=== PATIENT | female | born 1950 | race Caucasian/White ===

== ENCOUNTER → 2018-01-30 08:25 | Outpatient (CLI) | payer MEDICARE, OTHER, SELFPAY ==
[2018-01-30 10:39] LABS: Bacteria Urine None Seen; RBC Urine None Seen (0-5/HPF); WBC Urine None Seen (0-5/HPF)
[2018-01-30 10:55] LABS: Appearance Urine UA CLEAR; Bilirubin Urine UA NEGATIVE (NEGATIVE); Color Urine UA YELLOW; Glucose Urine UA NEGATIVE (Normal); Ketones Urine UA NEGATIVE (NEGATIVE); Leukocyte Esterase Urine UA NEGATIVE (NEGATIVE); Nitrite Urine UA Negative (Negative); Occult Blood Urine UA NEGATIVE (Negative); Protein Urine UA NEGATIVE (Negative); Specific Gravity Urine UA <=1.005 (1.000-1.035); Urobilinogen Urine UA 0.2 E.U./dL (0.2); pH Urine UA 6.5 (4.5-8.0)
[2018-01-30 11:01] LABS: Culture Indicated Urine Cult Not Indicated; Urine Comments Microscopic Normal
== END ==
PROVIDERS: PCP Family Medicine; Visit Provider Physician Assistant
DX: Z87.440 Personal history of urinary (tract) infections (principal)
CPT/HCPCS: 81001

== ENCOUNTER → 2018-02-06 13:55 | Outpatient (CLI) | payer MEDICARE, OTHER, SELFPAY ==
[2018-02-08 14:59] LABS: Cancer Antigen 27.29 37 U/mL (< 38)
== END ==
PROVIDERS: PCP Family Medicine; Visit Provider Physician Assistant
DX: Z85.3 Personal history of malignant neoplasm of breast (principal)
CPT/HCPCS: 36415; 86300

== ENCOUNTER → 2018-05-14 07:18 | Outpatient (CLI) | payer MEDICARE, OTHER, SELFPAY ==
[2018-05-14 07:59] LABS: Alanine Aminotransferase 29 IU/L (9-52); Albumin 4.4 g/dL (3.5-5.0); Albumin Globulin Ratio 1.5 (1.0-2.8); Alkaline Phosphatase 68 U/L (38-126); Aspartate Aminotransferase 26 IU/L (14-36); BUN Creatinine Ratio 14.4 (6-22); Bilirubin Total 0.6 mg/dL (0.2-1.3); Blood Urea Nitrogen 13 mg/dL (7-17); Calcium 8.9 mg/dL (8.4-10.2); Carbon Dioxide 23 mmol/L (22-32); Chloride 107 mmol/L (98-107); Estimated Glomerular Filt Rate > 60.0 mL/min (>60); Glucose 96 mg/dL (80-110); HEMOLYSIS < 15 (0-50); Sodium 143 mmol/L (137-145); Total Protein 7.4 g/dL (6.3-8.2); Uric Acid 4.8 mg/dL (2.5-6.2)
[2018-05-14 08:02] LABS: Rheumatoid Factor < 8.6 IU/mL (<12.0)
[2018-05-14 08:06] LABS: Add Manual Diff / Slide Review NO; Eosinophils Percent Auto 2.1 % (2-4); Hematocrit 41.6 % (36-46); Hemoglobin 13.8 g/dL (12.0-16.0); Mean Corpuscular HGB Conc 33.1 % (30-36); Mean Corpuscular Hemoglobin 29.4 PG (26-34); Mean Corpuscular Volume 88.6 fL (80-100); Monocytes Percent Auto 8.2 % (3-14); Neutrophils Absolute Auto 4400 /uL (3000-5900); Neutrophils Percent Auto 62.7 % (50-75); Platelet Count 240 X10^3/uL (150-400); Red Cell Distribution Width 13.8 % (11.6-14.8)
[2018-05-14 08:18] LABS: Appearance Urine UA CLEAR; Bilirubin Urine UA NEGATIVE (NEGATIVE); Color Urine UA YELLOW; Glucose Urine UA NEGATIVE (Normal); Ketones Urine UA NEGATIVE (NEGATIVE); Leukocyte Esterase Urine UA NEGATIVE (NEGATIVE); Nitrite Urine UA NEGATIVE (Negative); Occult Blood Urine UA NEGATIVE (Negative); Protein Urine UA NEGATIVE (Negative); Specific Gravity Urine UA <=1.005 (1.000-1.035); Urobilinogen Urine UA 0.2 E.U./dL (0.2)
[2018-05-14 08:36] LABS: Erythrocyte Sedimentation Rate 13 MM/HR (0-20)
[2018-05-24 12:26] LABS: ANA Screen NEGATIVE (Negative); DNA Antibody Crithidia IFA NEGATIVE (Negative); Rheumatoid Factor <14 IU/mL; Sjogren Antiboday SS-A <1.0 NEG AI (<1.0 NEGATIVE); Sjogren Antiboday SS-B <1.0 NEG AI (<1.0 NEGATIVE); Sm Antibody <1.0 NEG AI (<1.0 NEGATIVE); Sm/RNP Antibody <1.0 NEG AI (<1.0 NEGATIVE)
== END ==
PROVIDERS: PCP Family Medicine; Visit Provider Family Medicine
DX: E03.9 Hypothyroidism, unspecified (principal); I10 Essential (primary) hypertension; M19.90 Unspecified osteoarthritis, unspecified site
CPT/HCPCS: 36415; 80053; 81003; 84550; 85025; 85651; 86038; 86430

== ENCOUNTER → 2018-09-23 07:07 | Outpatient (CLI) | payer MEDICARE, OTHER, SELFPAY ==
[2018-09-23 09:17] LABS: Alanine Aminotransferase 28 IU/L (9-52); Albumin 4.3 g/dL (3.5-5.0); Albumin Globulin Ratio 1.4 (1.0-2.8); Alkaline Phosphatase 72 U/L (38-126); Aspartate Aminotransferase 28 IU/L (14-36); Bilirubin Total 0.8 mg/dL (0.2-1.3); Blood Urea Nitrogen 17 mg/dL (7-17); Calcium 9.4 mg/dL (8.4-10.2); Carbon Dioxide 27 mmol/L (22-32); Chloride 100 mmol/L (98-107); Cholesterol 202 mg/dL (140-199); Estimated Glomerular Filt Rate 54.8 mL/min (>60); Glucose 84 mg/dL (80-110); HDL Cholesterol 53 mg/dL (40-60); HEMOLYSIS < 15 (0-50); LDL Cholesterol Calculated 99 mg/dL (<100); Potassium 4.7 mmol/L (3.4-5.1); Sodium 137 mmol/L (137-145); Total Protein 7.3 g/dL (6.3-8.2); Triglycerides 252 mg/dL (35-150)
== END ==
PROVIDERS: PCP Family Medicine; Visit Provider Family Medicine
DX: E03.9 Hypothyroidism, unspecified (principal); E78.2 Mixed hyperlipidemia; I10 Essential (primary) hypertension; Z51.81 Encounter for therapeutic drug level monitoring
CPT/HCPCS: 36415; 80053; 80061

== ENCOUNTER → 2019-02-07 18:35 | Outpatient (CLI) | payer MEDICARE, OTHER, SELFPAY | PROVIDERS: PCP Family Medicine; Visit Provider Physician Assistant | DX: N30.01 Acute cystitis with hematuria (principal) | CPT/HCPCS: 87077; 87086; 87186 ==

== ENCOUNTER → 2019-02-15 08:35 | Outpatient (CLI) | payer MEDICARE, OTHER, SELFPAY ==
[2019-02-15 09:25] LABS: Add Manual Diff / Slide Review NO; Basophils Absolute Auto 100 /uL (0-100); Basophils Percent Auto 0.9 % (0-2); Eosinophils Absolute Auto 100 /uL (0-450); Eosinophils Percent Auto 1.2 % (2-4); Hematocrit 41.3 % (36-46); Lymphocytes Absolute Auto 1800 /uL (1100-4500); Lymphocytes Percent Auto 26.5 % (25-40); Mean Corpuscular HGB Conc 33.9 % (30-36); Mean Corpuscular Hemoglobin 29.8 PG (26-34); Mean Corpuscular Volume 87.8 fL (80-100); Monocytes Absolute Auto 600 /uL (0-900); Monocytes Percent Auto 9.4 % (3-14); Neutrophils Absolute Auto 4200 /uL (1500-7000); Platelet Count 225 X10^3/uL (150-400); Red Cell Distribution Width 13.9 % (11.6-14.8); White Blood Cell Count 6.7 X10^3/uL (4.5-11.0)
[2019-02-15 09:35] LABS: Alanine Aminotransferase 22 IU/L (9-52); Albumin 4.4 g/dL (3.5-5.0); Albumin Globulin Ratio 1.4 (1.0-2.8); Alkaline Phosphatase 73 U/L (38-126); Aspartate Aminotransferase 28 IU/L (14-36); Bilirubin Total 0.9 mg/dL (0.2-1.3); Blood Urea Nitrogen 12 mg/dL (7-17); Calcium 9.4 mg/dL (8.4-10.2); Carbon Dioxide 25 mmol/L (22-32); Chloride 99 mmol/L (98-107); Estimated Glomerular Filt Rate 54.8 mL/min (>60); Globulin 3.2 g/dL (1.7-4.1); Glucose 99 mg/dL (80-110); HEMOLYSIS < 15 (0-50); Potassium 4.4 mmol/L (3.4-5.1); Sodium 136 mmol/L (137-145); Total Protein 7.6 g/dL (6.3-8.2)
[2019-02-15 10:16] LABS: Appearance Urine UA CLEAR; Bilirubin Urine UA NEGATIVE (NEGATIVE); Color Urine UA YELLOW; Glucose Urine UA NEGATIVE (Negative); Ketones Urine UA NEGATIVE (NEGATIVE); Leukocyte Esterase Urine UA NEGATIVE (NEGATIVE); Nitrite Urine UA NEGATIVE (Negative); Occult Blood Urine UA TRACE-LYSED (Negative); Protein Urine UA NEGATIVE (Negative); Specific Gravity Urine UA <=1.005 (1.000-1.035); Urobilinogen Urine UA 0.2 E.U./dL (0.2); pH Urine UA 6.5 (4.5-8.0)
[2019-02-15 10:31] LABS: Free T3, Triiodothyronine Free 3.49 pg/mL (2.77-5.27); Free T4, Direct Thyroxine 0.99 ng/dL (0.78-2.19)
[2019-02-15 10:45] LABS: Thyroid Stimulating Hormone 1.93 uIU/mL (0.47-4.68)
== END ==
PROVIDERS: PCP Family Medicine; Visit Provider Family Medicine
DX: E03.9 Hypothyroidism, unspecified (principal); E78.2 Mixed hyperlipidemia; I10 Essential (primary) hypertension; Z51.81 Encounter for therapeutic drug level monitoring; R30.0 Dysuria; E78.5 Hyperlipidemia, unspecified
CPT/HCPCS: 36415; 80053; 81003; 84439; 84443; 84481; 85025; 87086

== ENCOUNTER → 2019-03-01 08:05 | Outpatient (CLI) | payer MEDICARE, OTHER, SELFPAY ==
[2019-03-01 09:00] LABS: Hematocrit 41.3 % (36-46); Hemoglobin 13.8 g/dL (12.0-16.0); Mean Corpuscular HGB Conc 33.4 % (30-36); Mean Corpuscular Hemoglobin 29.7 PG (26-34); Mean Corpuscular Volume 88.8 fL (80-100); Platelet Count 262 X10^3/uL (150-400); Red Blood Cell Count 4.65 X10^6/uL (4.0-5.2); Red Cell Distribution Width 14.1 % (11.6-14.8); White Blood Cell Count 7.7 X10^3/uL (4.5-11.0)
[2019-03-01 09:16] LABS: Neutrophils Absolute Manual 4851 /uL (3000-5900); Total Cells Counted 100
[2019-03-01 09:17] LABS: RBC Morphology Normal Morphology
[2019-03-01 09:20] LABS: Alanine Aminotransferase 21 IU/L (9-52); Albumin 4.3 g/dL (3.5-5.0); Albumin Globulin Ratio 1.4 (1.0-2.8); Alkaline Phosphatase 71 U/L (38-126); Aspartate Aminotransferase 30 IU/L (14-36); BUN Creatinine Ratio 15.6 (6-22); Bilirubin Total 0.8 mg/dL (0.2-1.3); Blood Urea Nitrogen 14 mg/dL (7-17); Carbon Dioxide 24 mmol/L (22-32); Chloride 105 mmol/L (98-107); Cholesterol 190 mg/dL (140-199); Estimated Glomerular Filt Rate > 60.0 mL/min (>60); Globulin 3.1 g/dL (1.7-4.1); Glucose 93 mg/dL (80-110); HDL Cholesterol 50 mg/dL (40-60); HEMOLYSIS < 15 (0-50); LDL Cholesterol Calculated 80 mg/dL (<100); Potassium 4.1 mmol/L (3.4-5.1); Sodium 139 mmol/L (137-145); Total Protein 7.4 g/dL (6.3-8.2); Triglycerides 301 mg/dL (35-150)
[2019-03-01 09:36] LABS: Free T3, Triiodothyronine Free 3.47 pg/mL (2.77-5.27); Free T4, Direct Thyroxine 1.04 ng/dL (0.78-2.19)
[2019-03-01 09:49] LABS: Thyroid Stimulating Hormone 1.72 uIU/mL (0.47-4.68)
[2019-03-04 17:25] LABS: Cancer Antigen 27.29 34 U/mL (< 38)
== END ==
PROVIDERS: PCP Family Medicine; Visit Provider Family Medicine
DX: E03.9 Hypothyroidism, unspecified (principal); E78.2 Mixed hyperlipidemia; I10 Essential (primary) hypertension; Z85.3 Personal history of malignant neoplasm of breast
CPT/HCPCS: 36415; 80053; 80061; 84439; 84443; 84481; 85025; 86300

== ENCOUNTER → 2019-04-14 13:03 | Outpatient (CLI) | payer MEDICARE, OTHER, SELFPAY ==
--- NOTE | 2019-04-14 13:04 | DI.US.S_ITS ---
PROCEDURE: US PELVIC COMPLETE INDICATIONS: PELVIC PAIN TECHNIQUE: Real-time scanning was performed of the pelvic organs, with image documentation. Additional endovaginal scanning was necessary due to incomplete visualization of the adnexal and endometrial structures by transabdominal scanning. COMPARISON: None. FINDINGS: Transabdominal scanning: Limited scanning through the kidneys shows no hydronephrosis. No pathologic free abdominal or pelvic fluid. Endovaginal scanning: Uterus: Uterus is normal in size at 6.3 x 2.3 x 3.7 cm. The endometrium measures 4.0 mm in combined thickness. Ovaries: Ovaries are normal bilaterally measuring 2.4 x 1.4 x 1.0 cm on the right and 2.1 x 1.3 x 1.1 cm in length. IMPRESSION: No source for pelvic pain identified. Dictated by: David LUCAS Interpreted: Jeannie Burton MD on 04/14/2019 at 16:10 Approved by: Jeannie Burton MD, PhD on 04/14/2019 at 16:47
== END ==
PROVIDERS: PCP Family Medicine; Visit Provider Family Medicine
DX: R10.2 Pelvic and perineal pain (principal); G89.29 Other chronic pain
CPT/HCPCS: 76830; 76856

== ENCOUNTER → 2019-05-13 13:45 | Outpatient (CLI) | payer MEDICARE, OTHER, SELFPAY ==
--- NOTE | 2019-05-13 13:47 | DI.RAD.S_ITS ---
PROCEDURE: XR LUMBAR SPINE MIN 4V INDICATIONS: pelvic pain TECHNIQUE: 4 views of the lumbar spine were acquired. COMPARISON: None. FINDINGS: Bones: No fracture or focal osseous destruction. Multilevel degenerative endplate sclerosis and spurring. Diffuse facet arthropathy. Diffuse mild narrowing of the lumbar disc spaces. Soft tissues: Overlying bowel gas pattern is normal. No suspicious soft tissue calcifications. Oblique images: No pars defects. IMPRESSION: Diffuse mild lumbar spondylosis and facet arthropathy. Dictated by: Pierce Johnson M.D. on 05/13/2019 at 16:11 Approved by: Pierce Johnson M.D. on 05/13/2019 at 16:12
== END ==
PROVIDERS: PCP Family Medicine; Visit Provider Family Medicine
DX: R10.2 Pelvic and perineal pain (principal); M47.816 Spondylosis without myelopathy or radiculopathy, lumbar region
CPT/HCPCS: 72110

== ENCOUNTER → 2019-05-21 11:15 | Outpatient (CLI) | payer MEDICARE, OTHER, SELFPAY ==
--- NOTE | 2019-05-21 11:18 | DI.RAD.S_ITS ---
PROCEDURE: XR KNEE LT 3V INDICATIONS: knee pain TECHNIQUE: 3 views of the knee were acquired. COMPARISON: None. FINDINGS: Bones: No acute fracture or dislocation. There are moderate to severe tricompartmental degenerative changes of the left knee, worst in the medial compartment, as evidenced by osteophyte formation and periarticular sclerosis. Soft tissues: No joint effusion. There is mild superior patellar enthesopathy. IMPRESSION: [id number] tricompartmental degenerative changes of the left knee, worst in the medial compartment. Dictated by: Benito White M.D. on 05/21/2019 at 15:25 Approved by: Benito White M.D. on 05/21/2019 at 15:27
--- NOTE | 2019-05-21 11:18 | DI.RAD.S_ITS ---
PROCEDURE: XR KNEE RT 3V INDICATIONS: knee pain TECHNIQUE: 3 views of the knee were acquired. COMPARISON: [facility], CR, XR KNEE LT 3V, 05/21/2019, 11:25. FINDINGS: Bones: No acute fractures or dislocations. No suspicious bony lesions. Mild tricompartmental degenerative changes of the right knee as evidenced by osteophyte formation and periarticular sclerosis. Mild chronic-appearing cortical irregularity of the distal lateral anterior right femur at the articular surface with the patella is noted, best seen on sunrise view. Soft tissues: No joint effusion is identified. There is mild superior patellar enthesopathy. IMPRESSION: Mild tricompartmental degenerative changes of the right knee. Mild cortical irregularity of the distal lateral anterior right femur at the articular surface with the patella may represent the chronic sequela of prior fracture/dislocation. Dictated by: Benito White M.D. on 05/21/2019 at 15:41 Approved by: Benito White M.D. on 05/21/2019 at 15:57
== END ==
PROVIDERS: PCP Family Medicine; Visit Provider Family Medicine
DX: M25.561 Pain in right knee (principal); M25.562 Pain in left knee; M79.2 Neuralgia and neuritis, unspecified; M81.0 Age-related osteoporosis without current pathological fracture
CPT/HCPCS: 73562

== ENCOUNTER → 2019-08-16 08:01 | Outpatient (CLI) | payer MEDICARE, OTHER, SELFPAY ==
[2019-08-16 09:21] LABS: Alanine Aminotransferase 31 IU/L (<35); Albumin 4.6 g/dL (3.5-5.0); Albumin Globulin Ratio 1.4 (1.0-2.8); Alkaline Phosphatase 77 U/L (38-126); Aspartate Aminotransferase 34 IU/L (14-36); Bilirubin Total 0.7 mg/dL (0.2-1.3); Bilirubin Unconjugated 0.7 mg/dL (0.0-1.1); Cholesterol 195 mg/dL (140-199); Globulin 3.3 g/dL (1.7-4.1); HDL Cholesterol 45 mg/dL (40-60); HEMOLYSIS < 15 (0-50); LDL Cholesterol Calculated 97 mg/dL (<100); Total Protein 7.9 g/dL (6.3-8.2); Triglycerides 265 mg/dL (35-150)
--- NOTE | 2019-08-19 10:35 | ONC.MSW ---
Description: New Referral Navigation T/C Reason for Referral: Hx breast cancer, re-establish care Activity: Called pt to confirm that we have her referral, and also to address specific concerns that she had shared with her provider, Radha Luna, re: difficulty coping with survivorship, and coping with the of her previous oncologist who treated her in this clinic. MACHINE [employer]IPPER offered support and reassurance, as well as helped pt to process what her goals/needs were at this time with returning to re-establish in clinic. Pt decided that she really didn't want to see the doctor right away, and instead scheduled a time to come in and meet with this MACHINE STRIPPER to discuss questions that she has, as well as counseling for support. She preferred to wait until September to meet-scheduled a time for 09/21. No further needs identified at this time.
[2019-08-19 15:50] LABS: Cancer Antigen 27.29 42 U/mL (< 38)
== END ==
PROVIDERS: PCP Nurse Practitioner; Referring Provider Nurse Practitioner; Visit Provider Nurse Practitioner
DX: E78.2 Mixed hyperlipidemia (principal); Z85.3 Personal history of malignant neoplasm of breast; Z79.899 Other long term (current) drug therapy; M81.0 Age-related osteoporosis without current pathological fracture; I10 Essential (primary) hypertension; E03.9 Hypothyroidism, unspecified
CPT/HCPCS: 36415; 80061; 80076; 86300

== ENCOUNTER → 2019-08-26 14:15 | Outpatient (CLI) | payer MEDICARE, OTHER, SELFPAY | PROVIDERS: PCP Nurse Practitioner; Visit Provider Physician Assistant | DX: J02.9 Acute pharyngitis, unspecified (principal) | CPT/HCPCS: 87070 ==

== ENCOUNTER → 2020-01-05 19:51 | Outpatient (ROUT) | payer MEDICARE, OTHER, SELFPAY ==
[2020-01-05 19:53] LABS: Bacteria Urine None Seen
[2020-01-05 19:58] LABS: Appearance Urine UA CLEAR; Bilirubin Urine UA NEGATIVE (NEGATIVE); Color Urine UA YELLOW; Glucose Urine UA NEGATIVE (Negative); Ketones Urine UA NEGATIVE (NEGATIVE); Leukocyte Esterase Urine UA NEGATIVE (NEGATIVE); Nitrite Urine UA NEGATIVE (Negative); Occult Blood Urine UA 3+ (Negative); Protein Urine UA NEGATIVE (Negative); Specific Gravity Urine UA <=1.005 (1.000-1.035); Urobilinogen Urine UA 0.2 E.U./dL (0.2)
[2020-01-05 20:14] LABS: pH Urine UA 6.5 (4.5-8.0)
[2020-01-05 20:15] LABS: Culture Indicated Urine Cult Not Indicated; RBC Urine 5-10/HPF (0-5/HPF); Squamous Epithelial Cell Urine 1-5 /HPF (0-5/HPF); WBC Urine 0-1/HPF (0-5/HPF)
== END ==
PROVIDERS: PCP Nurse Practitioner; Visit Provider Nurse Practitioner
DX: R31.9 Hematuria, unspecified (principal)
CPT/HCPCS: 81001

== ENCOUNTER → 2020-01-13 12:41 | Outpatient (CLI) | payer MEDICARE, OTHER, SELFPAY | PROVIDERS: PCP Nurse Practitioner; Referring Provider Nurse Practitioner; Visit Provider Nurse Practitioner | DX: M85.851 Other specified disorders of bone density and structure, right thigh (principal); Z78.0 Asymptomatic menopausal state; E07.9 Disorder of thyroid, unspecified; Z87.891 Personal history of nicotine dependence; Z79.899 Other long term (current) drug therapy | CPT/HCPCS: 77080 ==

== ENCOUNTER → 2020-03-03 08:00 | Outpatient (CLI) | payer MEDICARE, OTHER, SELFPAY ==
[2020-03-03 08:17] LABS: Bacteria Urine None Seen; RBC Urine None Seen (0-5/HPF); WBC Urine None Seen (0-5/HPF)
[2020-03-03 08:35] LABS: Creatinine Urine Random 14.6 mg/dL
[2020-03-03 08:43] LABS: Microalbumin Urine Random < 0.6 mg/dL (0-1.6)
[2020-03-03 09:36] LABS: Appearance Urine UA CLEAR; Bilirubin Urine UA NEGATIVE (NEGATIVE); Color Urine UA YELLOW; Glucose Urine UA NEGATIVE (Negative); Ketones Urine UA NEGATIVE (NEGATIVE); Leukocyte Esterase Urine UA TRACE (NEGATIVE); Nitrite Urine UA NEGATIVE (Negative); Occult Blood Urine UA NEGATIVE (Negative); Protein Urine UA NEGATIVE (Negative); Specific Gravity Urine UA <=1.005 (1.000-1.035); Urobilinogen Urine UA 0.2 E.U./dL (0.2)
[2020-03-03 09:39] LABS: pH Urine UA 7.5 (4.5-8.0)
[2020-03-03 09:40] LABS: Culture Indicated Urine Cult Not Indicated; Urine Comments Microscopic Normal
[2020-03-03 09:47] LABS: Alanine Aminotransferase 27 IU/L (<35); Albumin 4.4 g/dL (3.5-5.0); Albumin Globulin Ratio 1.4 (1.0-2.8); Alkaline Phosphatase 78 U/L (38-126); Aspartate Aminotransferase 33 IU/L (14-36); BUN Creatinine Ratio 12.4 (6-22); Bilirubin Total 0.9 mg/dL (0.2-1.3); Blood Urea Nitrogen 12 mg/dL (7-17); Calcium 9.4 mg/dL (8.4-10.2); Carbon Dioxide 26 mmol/L (22-32); Chloride 102 mmol/L (98-107); Cholesterol 214 mg/dL (140-199); Estimated Glomerular Filt Rate 56.6 mL/min (>60); Globulin 3.1 g/dL (1.7-4.1); Glucose 94 mg/dL (80-110); HDL Cholesterol 61 mg/dL (40-60); HEMOLYSIS < 15 (0-50); LDL Cholesterol Calculated 106 mg/dL (<100); Potassium 4.5 mmol/L (3.4-5.1); Sodium 139 mmol/L (137-145); Total Protein 7.5 g/dL (6.3-8.2); Triglycerides 236 mg/dL (35-150)
[2020-03-03 10:19] LABS: Thyroid Stimulating Hormone 1.78 uIU/mL (0.47-4.68)
[2020-03-05 12:08] LABS: Fecal Immunochemical Test Negative (Negative)
== END ==
PROVIDERS: PCP Nurse Practitioner; Referring Provider Nurse Practitioner; Visit Provider Nurse Practitioner
DX: E03.9 Hypothyroidism, unspecified (principal); E78.2 Mixed hyperlipidemia; I10 Essential (primary) hypertension; Z79.899 Other long term (current) drug therapy; R31.9 Hematuria, unspecified; Z12.11 Encounter for screening for malignant neoplasm of colon
CPT/HCPCS: 36415; 80053; 80061; 81001; 82043; 82274; 82570; 84443

== ENCOUNTER 2020-04-12 11:46 | Emergency (ER) | payer MEDICARE, OTHER, SELFPAY ==
[2020-04-12] VITALS (19 sets, daily range): BP systolic 144–188; BP diastolic 77–99; PULSE 72–88; RESP 18–24; TEMP 36.7; O2SAT 89–100
[2020-04-12 12:17] LABS: Add Manual Diff / Slide Review NO; Basophils Absolute Auto 100 /uL (0-100); Eosinophils Absolute Auto 100 /uL (0-450); Eosinophils Percent Auto 0.9 % (2-4); Hematocrit 43.3 % (36-46); Hemoglobin 14.3 g/dL (12.0-16.0); Lymphocytes Absolute Auto 2100 /uL (1100-4500); Mean Corpuscular HGB Conc 33.1 % (30-36); Mean Corpuscular Volume 90.8 fL (80-100); Monocytes Absolute Auto 700 /uL (0-900); Monocytes Percent Auto 7.9 % (3-14); Neutrophils Absolute Auto 6400 /uL (1500-7000); Neutrophils Percent Auto 68.2 % (50-75); Platelet Count 270 X10^3/uL (150-400); Red Blood Cell Count 4.77 X10^6/uL (4.0-5.2); White Blood Cell Count 9.4 X10^3/uL (4.5-11.0)
[2020-04-12 12:18] LABS: Prothrombin Time 11.8 SECONDS (10.1-12.7)
[2020-04-12 12:21] LABS: PTT Partial Thromboplastin Tim 35 SECONDS (26.4-36.2)
[2020-04-12] MEDS: MORPHINE 4 MG/ML INJ IV (12:21)
--- NOTE | 2020-04-12 12:21 | ED_ITS ---
HPI - Abdominal Pain <Patrick PROMISE Lorenzo - Last Filed: 04/13/20 02:23> General Chief Complaint: Abdominal Pain Stated Complaint: FELL LAST SUNDAY, RIGHT SIDE ABDOMINAL PAIN Time Seen by Provider: 04/12/20 12:05 Source: patient Mode of arrival: Ambulatory Limitations: no limitations History of Present Illness HPI narrative: This is a 69-year-old female, former smoker, with past medical history significant for hypertension, hyperlipidemia, and hypothyroidism presents to ED with chief complain of severe right upper quadrant pain radiating to back. Patient reports she had a fall 6 days ago in a garden but does not remember how she fell or landed at that time and RUQ was kind of sore. Patient experiencing severe pain this morning after she took a shower. Patient reports pain increases with breathing movements. She rates her pain as 8/10 and describes as sharp and shooting. Patient denies chest pain, dizziness, fever or chills. Patient is not on blood thinner. Related Data Home Medications Medication Instructions Recorded Confirmed lutein 20 mg PO QDAY #0 11/08/16 03/24/20 Calcium 1 tab PO .QDAY 01/30/18 03/24/20 Multivitamin 1 tab PO .QDAY 01/30/18 03/24/20 Vitamin D3 See Rx Instructions .ROUTE .COMPLEX 01/30/18 03/24/20 ibandronate mg PO 04/13/20 niacin 04/13/20 simvastatin mg 04/13/20 valsartan [Diovan] 04/13/20 Previous Rx's Medication Instructions Recorded levothyroxine 50 mcg tablet See Rx Instructions .ROUTE 04/22/19 .COMPLEX #90 tablet ibandronate 150 mg tablet 150 mg PO QMONTH #3 tab 09/22/19 valsartan 160 mg tablet 160 mg PO DAILY #90 tab 01/05/20 omeprazole magnesium 20 mg 20 mg PO DAILY PRN #90 cap 01/26/20 capsule,delayed release niacin 250 mg tablet 250 mg PO BEDTIME #90 tab 03/24/20 simvastatin 40 mg tablet 40 mg PO BEDTIME #90 tab 03/24/20 hydrocodone-acetaminophen [[place]] 1 tab PO Q8H PRN #10 tab 04/12/20 Allergies Allergy/AdvReac Type Severity Reaction Status Date / Time povidone-iodine Allergy Severe Itching, Verified 04/12/20 12:08 [From BETADINE] rash and blisters irbesartan AdvReac Mild nausea, Verified 04/12/20 12:08 hot flashes, heartburn Review of Systems <PROMISE Araujo - Last Filed: 04/13/20 02:23> Review of Systems Narrative: General: Denies fever, chills, fatigue, malaise, sweats. HEENT: Denies sinus pain, ear pain, sore throat, difficulty swallowing, dizziness. Respiratory: See HPI Cardiovascular: Denies chest pain, palpitations, orthopnea, edema. Gastrointestinal: See HPI : Denies dysuria, frequency, incontinence, hematuria, urinary retention. Musculoskeletal: See HPI Skin: Denies rash, skin lesions, or other. Neurologic: Denies weakness, headache, numbness, change in speech, confusion, seizures, incoordination. Psychiatric: No concerning psychosocial issues. 12-point review of systems is negative except for those stated above. Patient History <PROMISE Araujo - Last Filed: 04/13/20 02:23> Medical History Anxiety (Chronic 2009) Arthritis (Chronic 2011) Breast cancer (Resolved 2009) Cataracts, bilateral (Chronic 2011) Chickenpox (Resolved 1953) Fractures (Resolved 2011) Generalized headaches (Chronic Unknown) Hemorrhoids (Chronic 10/2016) Hyperlipemia (Chronic ~07/2015) Hypertension (Chronic Unknown) Hypothyroidism (Chronic Unknown) Left otitis media (Acute) Migraines (Chronic Unknown) Osteoarthritis (Chronic 2011) Osteopenia (Chronic 2010) Other chcf (current) drug therapy (Acute) Sigmoid diverticulosis (Resolved 10/2016) Sinusitis (Acute) Vertigo (Chronic 2010) Surgical History History of total mastectomy (2009) Family History Brother Age: 75 Mental health problem Child Age: 47 Thyroid cancer Father Stroke Mother Cancer Sister No problems noted. Social History Smoking Status: Former smoker Tobacco: How many years used: 35 second hand exposure: No alcohol intake: never substance use type: does not use Smoking Status: Former smoker alcohol intake frequency: 0-2 drinks per day Substance Use Type: does not use Exam <PROMISE Araujo - Last Filed: 04/13/20 02:23> Narrative Exam Narrative: GEN: Alert, oriented x 3, well nourished, and in moderate distress. Head: Normal cephalic, atraumatic. No scalp or temporal tenderness, palpable mass or rash. EYES: Pupils are equal, round, and reactive to light and accommodation. Extraocular muscles are intact bilaterally. There is no subconjunctival hemorrhage, exudate and sclera non-icteric. ENT: Hearing grossly intact. Nose without bleeding, purulent discharge or deviation. Mucous membrane moist, no mucosal lesion. Throat without erythema, tonsillar hypertrophy or exudate. Uvula in midline, airway patent. Neck: Trachea in midline. No JVD, non-tender without lymphadenopathy. No masses or thyroid megaly. Supple, non-tender and no meningeal signs. CARDIAC: Normal regular rate and rhythm without murmurs, gallops, or rubs. No chest wall tenderness. No peripheral edema, cyanosis or pallor. Capillary refill is less than 2 seconds. RESPIRATORY: Lungs are clear to auscultate bilaterally. No cough, wheezes, rales, or rhonchi. No stridor. Grunting breathing due to discomfort. No respiratory distress, increase work of breathing, or accessary muscle used. O2 sat 96% in RA. ABD: Abdomen soft and non-distended but exquisite tenderness to palpate in right upper quadrant and side. Guarding to palpate. Bowel sounds are normal in all 4 quadrants. There is no palpable masses or organomegaly. EXT: Full painless ROM of all extremities with no loss of sensation, strength, effusion or edema. SKIN: Warm, dry, normal color for patient. No erythema, lesions or rash over visible areas. BACK: Nontender without deformity or crepitance. No flank tenderness. NEUROLOGICAL: Alert and oriented to place, time and person. Sensation and motor function intact bilaterally. No facial droops, dysphasia. PSYCHIATRIC: Good judgement and reason, without hallucinations, abnormal affect or abnormal behaviors during the examination. Patient is not suicidal. Initial Vital Signs Initial Vital Signs: Vital Signs Temperature 98.1 F 04/12/20 11:50 Pulse Rate 88 04/12/20 11:50 Respiratory Rate 24 04/12/20 11:50 Blood Pressure 188/99 H 04/12/20 11:50 Pulse Oximetry 98 04/12/20 11:50 <Alex Quintana DO - Last Filed: 04/13/20 07:36> Initial Vital Signs Initial Vital Signs: Vital Signs Temperature 98.1 F 04/12/20 11:50 Pulse Rate 88 04/12/20 11:50 Respiratory Rate 24 04/12/20 11:50 Blood Pressure 188/99 H 04/12/20 11:50 Pulse Oximetry 98 04/12/20 11:50 Scores <PROMISE Araujo - Last Filed: 04/13/20 02:23> GCS [place] coma scale eye opening: Spontaneous Lay coma scale verbal response: Orientated Lay coma scale motor response: Obey commands Lay coma scale total score: 15 Course <PROMISE Araujo - Last Filed: 04/13/20 02:23> Orders Ordered: Discontinued Medications Diphenhydramine HCl (Benadryl) 25 mg IV NOW ONE Stop: 04/12/20 12:36 Last Admin: 04/12/20 12:38 Dose: 25 mg Documented by: SHIVA Sodium Chloride (Normal Saline 0.9%) 1,000 mls @ 150 mls/hr IV CONT BRENDAN Last Infusion: 04/12/20 13:30 Dose: 0 mls/hr Documented by: Admin: 04/12/20 12:22 Dose: 150 mls/hr Documented by: SHIVA Morphine Sulfate (Morphine) 4 mg IV NOW ONE Stop: 04/12/20 12:13 Last Admin: 04/12/20 12:21 Dose: 4 mg Documented by: SHIVA Reevaluation(s) Reevaluation #1: Patient reports pain improved after medication treatment. Waiting for CT results. Time: 13:15 Vital Signs Vital signs: Vital Signs - 8 hr 04/12/20 11:50 04/12/20 12:08 04/12/20 12:15 Temperature 98.1 F Pulse Rate 88 78 72 Respiratory Rate 24 24 Blood Pressure 188/99 H Pulse Oximetry 98 96 96 <Alex Quintana DO - Last Filed: 04/13/20 07:36> Orders Ordered: Discontinued Medications Diphenhydramine HCl (Benadryl) 25 mg IV NOW ONE Stop: 04/12/20 12:36 Last Admin: 04/12/20 12:38 Dose: 25 mg Documented by: SHIVA Sodium Chloride (Normal Saline 0.9%) 1,000 mls @ 150 mls/hr IV CONT BRENDAN Last Infusion: 04/12/20 13:30 Dose: 0 mls/hr Documented by: Admin: 04/12/20 12:22 Dose: 150 mls/hr Documented by: SHIVA Morphine Sulfate (Morphine) 4 mg IV NOW ONE Stop: 04/12/20 12:13 Last Admin: 04/12/20 12:21 Dose: 4 mg Documented by: SHIVA Vital Signs Vital signs: Vital Signs - 8 hr 04/12/20 11:50 04/12/20 12:08 04/12/20 12:15 Temperature 98.1 F Pulse Rate 88 78 72 Respiratory Rate 24 24 Blood Pressure 188/99 H Pulse Oximetry 98 96 96 MDM - Abdominal Pain <PROMISE Araujo - Last Filed: 04/13/20 02:23> Differential Diagnosis Differential diagnosis: Likely acute appendicitis, calculus of kidney and other (Rib fracture, liver laceration, pulmonary embolism, cholecystitis, pancreatitis,) Medical Records Attestation: I reviewed the patient's medical records. Lab Data Attestation: I reviewed the patient's lab results. Result diagrams: 04/12/20 12:03 04/12/20 12:03 Labs: Lab Results 04/12/20 04/12/20 04/12/20 Range/Units 11:46 12:03 12:03 WBC 9.4 (4.5-11.0) X10^3/uL RBC 4.77 (4.0-5.2) X10^6/uL Hgb 14.3 (12.0-16.0) g/dL Hct 43.3 (36-46) % MCV 90.8 (80-100) fL MCH 30.0 (26-34) PG MCHC 33.1 (30-36) % RDW 14.0 (11.6-14.8) % Plt Count 270 (150-400) X10^3/uL Neut % (Auto) 68.2 (50-75) % Lymph % (Auto) 22.0 L (25-40) % Sunflower % (Auto) 7.9 (3-14) % Eos % (Auto) 0.9 L (2-4) % Baso % (Auto) 1.0 (0-2) % Neut # (Auto) 6400 (2125-7522) /uL Lymph # (Auto) 2100 (5637-9238) /uL Sunflower # (Auto) 700 (0-900) /uL Eos # (Auto) 100 (0-450) /uL Baso # (Auto) 100 (0-100) /uL PT 11.8 (10.1-12.7) SECONDS INR 1.0 (0.9-1.3) APTT 35 (26.4-36.2) SECONDS Sodium (137-145) mmol/L Potassium (3.4-5.1) mmol/L Chloride (98-107) mmol/L Carbon Dioxide (22-32) mmol/L BUN (7-17) mg/dL Creatinine (0.52-1.04) mg/dL Estimated GFR (>60) mL/min BUN/Creatinine Ratio (6-22) Glucose (80-110) mg/dL Calcium (8.4-10.2) mg/dL Total Bilirubin (0.2-1.3) mg/dL AST (14-36) IU/L ALT (<35) IU/L Alkaline Phosphatase (38-126) U/L Total Protein (6.3-8.2) g/dL Albumin (3.5-5.0) g/dL Globulin (1.7-4.1) g/dL Albumin/Globulin Ratio (1.0-2.8) Lipase (23-300) U/L Blood Type O Positive Antibody Screen Negative 04/12/20 Range/Units 12:03 WBC (4.5-11.0) X10^3/uL RBC (4.0-5.2) X10^6/uL Hgb (12.0-16.0) g/dL Hct (36-46) % MCV (80-100) fL MCH (26-34) PG MCHC (30-36) % RDW (11.6-14.8) % Plt Count (150-400) X10^3/uL Neut % (Auto) (50-75) % Lymph % (Auto) (25-40) % Sunflower % (Auto) (3-14) % Eos % (Auto) (2-4) % Baso % (Auto) (0-2) % Neut # (Auto) (7537-9235) /uL Lymph # (Auto) (0952-6839) /uL Sunflower # (Auto) (0-900) /uL Eos # (Auto) (0-450) /uL Baso # (Auto) (0-100) /uL PT (10.1-12.7) SECONDS INR (0.9-1.3) APTT (26.4-36.2) SECONDS Sodium 140 (137-145) mmol/L Potassium 3.9 (3.4-5.1) mmol/L Chloride 106 (98-107) mmol/L Carbon Dioxide 25 (22-32) mmol/L BUN 13 (7-17) mg/dL Creatinine 0.90 (0.52-1.04) mg/dL Estimated GFR > 60.0 (>60) mL/min BUN/Creatinine Ratio 14.4 (6-22) Glucose 107 (80-110) mg/dL Calcium 9.4 (8.4-10.2) mg/dL Total Bilirubin 0.7 (0.2-1.3) mg/dL AST 33 (14-36) IU/L ALT 29 (<35) IU/L Alkaline Phosphatase 79 (38-126) U/L Total Protein 8.0 (6.3-8.2) g/dL Albumin 4.7 (3.5-5.0) g/dL Globulin 3.3 (1.7-4.1) g/dL Albumin/Globulin Ratio 1.4 (1.0-2.8) Lipase 69 (23-300) U/L Blood Type Antibody Screen Point of care testing: Urine Dip Bedside Urine Glucose Negative Bedside Urine Bilirubin - Negative Bedside Urine Ketone - Negative Urine Specific [place] 1.005 Bedside Urine Occult Blood - Negative Bedside Urine pH 6.5 Bedside Urine Protein - Negative Bedside Urine Urobilinogen - Negative Bedside Urine Nitrite - Negative Imaging Data CT-Chest and abdomen: Radiologist's Impression: [address] [address] [address] Scan Report Signed Patient: Heath Valverde#: [id number] : 9Acct:[id number] Age/Sex: 69 / FDate of Service: 04/12/20 Loc: ED Accession Number: [id number] Procedure: CT chest abd pel w con Ordering Provider: Patrick Lorenzo PROCEDURE: CT CHEST ABD PEL W CON INDICATIONS: s/p fall 6 days ago, pain in RUQ pain TECHNIQUE: After the administration of intravenous contrast, 5 mm thick sections acquired from the lung apices to the symphysis. 2.5 mm thick coronal and sagittal reformats were acquired. Additional 7 mm thick coronal maximum intensity projection (MIP) reformats acquired through the lungs. Optional 10-minute delayed imaging may be performed from the kidneys to the bladder. For radiation dose reduction, the following was used: automated exposure control, adjustment of mA and/or kV according to patient size. COMPARISON: None. FINDINGS: Image quality: Excellent. CHEST: Lungs: No pulmonary contusions or lacerations. Scattered atelectasis in posterior aspect of bilateral lower lung pham are seen more prominent on the right side. No pneumothorax or hemothorax. Central and peripheral airways appear patent and normal in caliber. Mediastinum: No mediastinal hematomas. Heart size is normal. No pericardial effusion. Thoracic aorta and pulmonary arteries demonstrate normal size and enhancement. [id number]-[id number] atherosclerotic calcifications are seen. No mediastinal or hilar adenopathy. Esophagus is normal in caliber. No hiatal hernia. Chest wall: No gross rib fracture is seen. No subcutaneous emphysema. No axillary or supraclavicular adenopathy. Surgical clips are noted in bilateral axilla. Thyroid gland is within normal limits. ABDOMEN: Solid organs: Liver is normal in size and enhancement, without lacerations. Hepatic steatosis is seen. Gallbladder is distended and shows no gross abnormality.. Biliary system is non-dilated. Pancreas enhances normally, without transection. Spleen is normal in size and enhancement, without lacerations. No adrenal hematomas. Both kidneys enhance normally, without hydronephrosis or lacerations. Peritoneum and bowel: No free fluid or air. Unenhanced bowel loops demonstrate normal wall thickness and caliber. Mild fecal stasis in the colon is seen. Nodes and vessels: No retroperitoneal or mesenteric adenopathy. Aorta and inferior vena cava are normal in size and enhancement. Miscellaneous: No ventral hernias. PELVIS: Genitourinary: Bladder wall thickness is normal. Miscellaneous: No inguinal hernias or adenopathy. Bones: Pelvic ring and hip joints appear intact. No vertebral compression fractures. IMPRESSION: 1. Mild bibasilar dependent atelectasis. No focal infiltrate, pleural effusion or pneumothorax. 2. No gross acute rib fracture. No compression fracture or spondylolisthesis in thoracic and lumbar spine. No acute pelvic fracture. 3. No acute solid organ injury within chest, abdomen or pelvis. No free fluid or free air. Dictated by: Hollis Saunders M.D. on 04/12/2020 at 13:30 Approved by: Hollis Saunders M.D. on 04/12/2020 at 14:01 US - abdomen: Radiologist's Impression: [address] [address] Ultrasound Report Signed Patient: Heath Valverde#: [id number] : 9Acct:[id number] Age/Sex: 69 / FDate of Service: 04/12/20 Loc: ED Accession Number: [id number] Procedure: US abdomen limited Ordering Provider: Patrick Lorenzo PROCEDURE: US ABDOMEN LIMITED INDICATIONS: RUQ PAIN RADIATING TO BACK TECHNIQUE: Real-time focused scanning was performed of the abdomen, with image documentation. COMPARISON: [facility], CT, CT CHEST ABD PEL W CON, 04/12/2020, 12:48. FINDINGS: Hepatic steatosis. No gallstones. Minimal gallbladder sludge. No gallbladder wall thickening. No fluid around the gallbladder. No pain on examination. No biliary ductal dilatation. Common hepatic duct measures 1.9 mm. Common bile duct measures 4.6 mm. IMPRESSION: No evidence of gallstone disease. No evidence of acute cholecystitis. Hepatic steatosis. Dictated by: Jamari Randhawa M.D. on 04/12/2020 at 15:38 Approved by: Jamari Randhawa M.D. on 04/12/2020 at 15:40 ECG Data Attestation: I personally reviewed and interpreted this ECG as follows: Prior ECG tracings: not available for review Interpretation: Sinus rhythm rate at 74. Normal [place]. [place] interval 204, QRS duration 88, QT/QTC 394/441. No acute ST changes MDM Narrative Medical decision making narrative: This is a 69 year female presents to ED with exquisite tenderness to right upper quadrant radiating to right thoracic region which started this morning after shower she reports had fell in the garden 6 days ago. Patient denies chest pain by hurts to take deep breaths. No constitutional symptoms. O2 sat in room air was 99% and afebrile. Initially hypertensive with slight tachypnea. Given history of recent injury and patient's presentation, concern for possible rib fracture, liver laceration, pneumothorax, acute abdominal pathology, ordered CT of chest and abdomen. CT test result indicates mild bibasilar dependent atelectasis without infiltrate, pneumothorax or pleural effusion. There is no gross acute fracture appreciated. No acute solid organ injury appreciated. No leukocytosis. Stable H&H of 14.3/43.3. Normal coag test. Unremarkable chemistry results With normal lipase. Patient was medicated with IV morphine which helped her symptoms. However when patient was reassessed she reports still had some tenderness to right upper quadrant with palpation. US test of abdomen ordered to evaluate gall bladder to be slightly distended in CT. Ultrasound test indicates no evidence of gallstone or acute cholecystitis but hepatic steatosis. It is unclear of the etiology of patient's pain. At this time will treat patient's pain as musculoskeletal pain. Patient advised to take [id number] Tylenol and Motrin as needed and to take [place] for severe pain. Advised to follow up with primary care physician in next few days and return precautions discussed with patient which patient verbalized understanding and in agreement with treatment plan. <Alex Quintana, DO - Last Filed: 04/13/20 07:36> Lab Data Labs: Lab Results 04/12/20 04/12/20 04/12/20 Range/Units 11:46 12:03 12:03 WBC 9.4 (4.5-11.0) X10^3/uL RBC 4.77 (4.0-5.2) X10^6/uL Hgb 14.3 (12.0-16.0) g/dL Hct 43.3 (36-46) % MCV 90.8 (80-100) fL MCH 30.0 (26-34) PG MCHC 33.1 (30-36) % RDW 14.0 (11.6-14.8) % Plt Count 270 (150-400) X10^3/uL Neut % (Auto) 68.2 (50-75) % Lymph % (Auto) 22.0 L (25-40) % Sunflower % (Auto) 7.9 (3-14) % Eos % (Auto) 0.9 L (2-4) % Baso % (Auto) 1.0 (0-2) % Neut # (Auto) 6400 (1024-0123) /uL Lymph # (Auto) 2100 (0681-9852) /uL Sunflower # (Auto) 700 (0-900) /uL Eos # (Auto) 100 (0-450) /uL Baso # (Auto) 100 (0-100) /uL PT 11.8 (10.1-12.7) SECONDS INR 1.0 (0.9-1.3) APTT 35 (26.4-36.2) SECONDS Sodium (137-145) mmol/L Potassium (3.4-5.1) mmol/L Chloride (98-107) mmol/L Carbon Dioxide (22-32) mmol/L BUN (7-17) mg/dL Creatinine (0.52-1.04) mg/dL Estimated GFR (>60) mL/min BUN/Creatinine Ratio (6-22) Glucose (80-110) mg/dL Calcium (8.4-10.2) mg/dL Total Bilirubin (0.2-1.3) mg/dL AST (14-36) IU/L ALT (<35) IU/L Alkaline Phosphatase (38-126) U/L Total Protein (6.3-8.2) g/dL Albumin (3.5-5.0) g/dL Globulin (1.7-4.1) g/dL Albumin/Globulin Ratio (1.0-2.8) Lipase (23-300) U/L Blood Type O Positive Antibody Screen Negative 04/12/20 Range/Units 12:03 WBC (4.5-11.0) X10^3/uL RBC (4.0-5.2) X10^6/uL Hgb (12.0-16.0) g/dL Hct (36-46) % MCV (80-100) fL MCH (26-34) PG MCHC (30-36) % RDW (11.6-14.8) % Plt Count (150-400) X10^3/uL Neut % (Auto) (50-75) % Lymph % (Auto) (25-40) % Sunflower % (Auto) (3-14) % Eos % (Auto) (2-4) % Baso % (Auto) (0-2) % Neut # (Auto) (5977-7313) /uL Lymph # (Auto) (4216-6853) /uL Sunflower # (Auto) (0-900) /uL Eos # (Auto) (0-450) /uL Baso # (Auto) (0-100) /uL PT (10.1-12.7) SECONDS INR (0.9-1.3) APTT (26.4-36.2) SECONDS Sodium 140 (137-145) mmol/L Potassium 3.9 (3.4-5.1) mmol/L Chloride 106 (98-107) mmol/L Carbon Dioxide 25 (22-32) mmol/L BUN 13 (7-17) mg/dL Creatinine 0.90 (0.52-1.04) mg/dL Estimated GFR > 60.0 (>60) mL/min BUN/Creatinine Ratio 14.4 (6-22) Glucose 107 (80-110) mg/dL Calcium 9.4 (8.4-10.2) mg/dL Total Bilirubin 0.7 (0.2-1.3) mg/dL AST 33 (14-36) IU/L ALT 29 (<35) IU/L Alkaline Phosphatase 79 (38-126) U/L Total Protein 8.0 (6.3-8.2) g/dL Albumin 4.7 (3.5-5.0) g/dL Globulin 3.3 (1.7-4.1) g/dL Albumin/Globulin Ratio 1.4 (1.0-2.8) Lipase 69 (23-300) U/L Blood Type Antibody Screen Point of care testing: Urine Dip Bedside Urine Glucose Negative Bedside Urine Bilirubin - Negative Bedside Urine Ketone - Negative Urine Specific [place] 1.005 Bedside Urine Occult Blood - Negative Bedside Urine pH 6.5 Bedside Urine Protein - Negative Bedside Urine Urobilinogen - Negative Bedside Urine Nitrite - Negative Discharge Plan Departure Patient Disposition: Home Clinical Impression: Right upper quadrant pain Discharge Date/Time: 04/12/20 16:17 Instructions: DI for Contusion, DI for Rib Contusion Activity Restrictions/Additional Instructions: You have been diagnosed with [right upper quadrant discomfort likely from rib /chest contusion strain. Labs and imaging tests -US abdomen, CT of chest and abdomen are assuring.]. What to do: *Take your medications as directed. Please take [id number] Tylenol and or Motrin as needed for discomfort as a baseline. For severe pain please take which is narcotic pain medication. Please do not drive, drink alcohol, or operate heavy equipments while on [place]. This can cause constipation as well so please take precautions. Please take deep breaths 10 times every hour while your awake while splinting the affected area to decrease pain and to prevent pneumonia. [facility] [place]. *Follow up with your primary care provider in 2-3 days, call for an appointment. Let them know you were seen in the ED and that we asked you to be seen in follow up. *Return to ED if you have any new, worsening, or concerning symptoms, such as [worsening pain, fever, rash, chest pain, breathing difficulty, unable to tolerate fluids or any acute concerns]. Prescriptions: New hydrocodone-acetaminophen [[place]] 5-325 mg tablet 1 tab PO Q8H PRN (Reason: pain) Qty: 10 RF: 0 No Action Calcium 1 tab PO .QDAY RF: 0 Multivitamin 1 tab PO .QDAY RF: 0 Vitamin D3 See Rx Instructions .ROUTE .COMPLEX RF: 0 lutein 20 MG capsule 20 mg PO QDAY Qty: 0 RF: 0 levothyroxine 50 mcg tablet See Rx Instructions .ROUTE .COMPLEX Qty: 90 RF: 4 ibandronate [Boniva] 150 mg tablet 150 mg PO QMONTH Qty: 3 RF: 3 omeprazole magnesium 20 mg capsule,delayed release(DR/EC) 20 mg PO DAILY PRN (Reason: GERD) Qty: 90 RF: 3 niacin 250 mg tablet 250 mg PO BEDTIME Qty: 90 RF: 1 simvastatin 40 mg tablet 40 mg PO BEDTIME Qty: 90 RF: 1 valsartan 160 mg tablet 160 mg PO DAILY Qty: 90 RF: 3 valsartan [Diovan] 160 mg tablet RF: 0 niacin 250 mg tablet RF: 0 simvastatin 20 mg tablet RF: 0 ibandronate 150 mg tablet PO RF: 0 Referrals: Radha Luna ARNP [Primary Care Provider] - <Alex Quintana DO - Last Filed: 04/13/20 07:36> Cosign ED Attending Cosignature Attestation: I was immediately available in the department for consultation. This documentation has been reviewed and I agree with assessment and plan. Supervised by Alex Quintana DO
[2020-04-12] MEDS: SODIUM CHLORIDE 0.9% 1,000 ML 150 ML IV (12:22)
[2020-04-12 12:28] LABS: Alanine Aminotransferase 29 IU/L (<35); Albumin 4.7 g/dL (3.5-5.0); Albumin Globulin Ratio 1.4 (1.0-2.8); Alkaline Phosphatase 79 U/L (38-126); Aspartate Aminotransferase 33 IU/L (14-36); BUN Creatinine Ratio 14.4 (6-22); Bilirubin Total 0.7 mg/dL (0.2-1.3); Blood Urea Nitrogen 13 mg/dL (7-17); Calcium 9.4 mg/dL (8.4-10.2); Carbon Dioxide 25 mmol/L (22-32); Chloride 106 mmol/L (98-107); Estimated Glomerular Filt Rate > 60.0 mL/min (>60); Globulin 3.3 g/dL (1.7-4.1); Glucose 107 mg/dL (80-110); HEMOLYSIS < 15 (0-50); Lipase 69 U/L (23-300); Potassium 3.9 mmol/L (3.4-5.1); Sodium 140 mmol/L (137-145)
[2020-04-12] MEDS: diphenhydrAMINE 50 MG/ML VIAL 25 MG IV (12:38)
--- NOTE | 2020-04-12 13:13 | DI.CT.S_ITS ---
PROCEDURE: CT CHEST ABD PEL W CON INDICATIONS: s/p fall 6 days ago, pain in RUQ pain TECHNIQUE: After the administration of intravenous contrast, 5 mm thick sections acquired from the lung apices to the symphysis. 2.5 mm thick coronal and sagittal reformats were acquired. Additional 7 mm thick coronal maximum intensity projection (MIP) reformats acquired through the lungs. Optional 10-minute delayed imaging may be performed from the kidneys to the bladder. For radiation dose reduction, the following was used: automated exposure control, adjustment of mA and/or kV according to patient size. COMPARISON: None. FINDINGS: Image quality: Excellent. CHEST: Lungs: No pulmonary contusions or lacerations. Scattered atelectasis in posterior aspect of bilateral lower lung pham are seen more prominent on the right side. No pneumothorax or hemothorax. Central and peripheral airways appear patent and normal in caliber. Mediastinum: No mediastinal hematomas. Heart size is normal. No pericardial effusion. Thoracic aorta and pulmonary arteries demonstrate normal size and enhancement. [id number] atherosclerotic calcifications are seen. No mediastinal or hilar adenopathy. Esophagus is normal in caliber. No hiatal hernia. Chest wall: No gross rib fracture is seen. No subcutaneous emphysema. No axillary or supraclavicular adenopathy. Surgical clips are noted in bilateral axilla. Thyroid gland is within normal limits. ABDOMEN: Solid organs: Liver is normal in size and enhancement, without lacerations. Hepatic steatosis is seen. Gallbladder is distended and shows no gross abnormality.. Biliary system is non-dilated. Pancreas enhances normally, without transection. Spleen is normal in size and enhancement, without lacerations. No adrenal hematomas. Both kidneys enhance normally, without hydronephrosis or lacerations. Peritoneum and bowel: No free fluid or air. Unenhanced bowel loops demonstrate normal wall thickness and caliber. Mild fecal stasis in the colon is seen. Nodes and vessels: No retroperitoneal or mesenteric adenopathy. Aorta and inferior vena cava are normal in size and enhancement. Miscellaneous: No ventral hernias. PELVIS: Genitourinary: Bladder wall thickness is normal. Miscellaneous: No inguinal hernias or adenopathy. Bones: Pelvic ring and hip joints appear intact. No vertebral compression fractures. IMPRESSION: 1. Mild bibasilar dependent atelectasis. No focal infiltrate, pleural effusion or pneumothorax. 2. No gross acute rib fracture. No compression fracture or spondylolisthesis in thoracic and lumbar spine. No acute pelvic fracture. 3. No acute solid organ injury within chest, abdomen or pelvis. No free fluid or free air. Dictated by: Hollis Saunders M.D. on 04/12/2020 at 13:30 Approved by: Hollis Saunders M.D. on 04/12/2020 at 14:01
--- NOTE | 2020-04-12 14:43 | DI.US.S_ITS ---
PROCEDURE: US ABDOMEN LIMITED INDICATIONS: RUQ PAIN RADIATING TO BACK TECHNIQUE: Real-time focused scanning was performed of the abdomen, with image documentation. COMPARISON: [facility], CT, CT CHEST ABD PEL W ANICETO, 04/12/2020, 12:48. FINDINGS: Hepatic steatosis. No gallstones. Minimal gallbladder sludge. No gallbladder wall thickening. No fluid around the gallbladder. No pain on examination. No biliary ductal dilatation. Common hepatic duct measures 1.9 mm. Common bile duct measures 4.6 mm. IMPRESSION: No evidence of gallstone disease. No evidence of acute cholecystitis. Hepatic steatosis. Dictated by: Jamari Randhawa M.D. on 04/12/2020 at 15:38 Approved by: Jamari Randhawa M.D. on 04/12/2020 at 15:40
== END 2020-04-12 16:17 | disposition home or self-care (01) ==
PROVIDERS: Emergency Provider Nurse Practitioner Family; PCP Nurse Practitioner
DX: R10.11 Right upper quadrant pain (principal); W19.XXXA Unspecified fall, initial encounter
CPT/HCPCS: 36415; 71260; 74177; 76705; 80053; 81003; 83690; 85025; 85610; 85730; 86850; 86900; 86901; 93005; 93010; 96361; 96374; 96375; 99284; J1200; J2270; Q9967

== ENCOUNTER → 2020-04-19 09:25 | Outpatient (CLI) | payer MEDICARE, OTHER, SELFPAY ==
[2020-04-19 11:09] LABS: Appearance Urine UA CLEAR; Bilirubin Urine UA NEGATIVE (NEGATIVE); Glucose Urine UA NEGATIVE (Negative); Ketones Urine UA NEGATIVE (NEGATIVE); Leukocyte Esterase Urine UA NEGATIVE (NEGATIVE); Nitrite Urine UA NEGATIVE (Negative); Occult Blood Urine UA TRACE-INTACT (Negative); Protein Urine UA NEGATIVE (Negative); Specific Gravity Urine UA <=1.005 (1.000-1.035); Urobilinogen Urine UA 0.2 E.U./dL (0.2)
[2020-04-19 11:49] LABS: Bacteria Urine Occasional (0-1); Color Urine UA STRAW; Culture Indicated Urine Cult Not Indicated; RBC Urine 0-1/HPF (0-5/HPF); Squamous Epithelial Cell Urine 0-1 /HPF (0-5/HPF); WBC Urine 0-1/HPF (0-5/HPF)
== END ==
PROVIDERS: PCP Nurse Practitioner; Referring Provider Nurse Practitioner; Visit Provider Nurse Practitioner
DX: N39.0 Urinary tract infection, site not specified (principal)
CPT/HCPCS: 81001

== ENCOUNTER → 2020-08-05 07:00 | Outpatient (CLI) | payer MEDICARE, OTHER, SELFPAY ==
[2020-08-05 08:31] LABS: Alanine Aminotransferase 21 IU/L (<35); Albumin 4.3 g/dL (3.5-5.0); Albumin Globulin Ratio 1.5 (1.0-2.8); Alkaline Phosphatase 78 U/L (38-126); Aspartate Aminotransferase 27 IU/L (14-36); Bilirubin Total 0.8 mg/dL (0.2-1.3); Bilirubin Unconjugated 0.7 mg/dL (0.0-1.1); Cholesterol 177 mg/dL (140-199); Globulin 2.8 g/dL (1.7-4.1); HDL Cholesterol 52 mg/dL (40-60); HEMOLYSIS < 15 (0-50); LDL Cholesterol Calculated 87 mg/dL (<100); Total Protein 7.1 g/dL (6.3-8.2); Triglycerides 188 mg/dL (35-150)
== END ==
PROVIDERS: PCP Nurse Practitioner; Referring Provider Nurse Practitioner; Visit Provider Nurse Practitioner
DX: E78.2 Mixed hyperlipidemia (principal); Z79.899 Other long term (current) drug therapy
CPT/HCPCS: 36415; 80061; 80076

== ENCOUNTER → 2020-12-29 15:31 | Outpatient (CLI) | payer MEDICARE, OTHER, SELFPAY ==
--- NOTE | 2020-12-29 15:33 | DI.US.S_ITS ---
PROCEDURE: US PELVIC COMPLETE INDICATIONS: RLQ PAIN TECHNIQUE: Real-time scanning was performed of the pelvic organs, with image documentation. Additional endovaginal scanning was necessary due to incomplete visualization of the adnexal and endometrial structures by transabdominal scanning. COMPARISON: [facility], CT, CT CHEST ABD PEL W CON, 04/12/2020, 12:48. [facility], US, US PELVIC COMPLETE, 04/14/2019, 13:15. FINDINGS: Uterus: Uterus is anteverted and measures 6.6 x 2.7 x 3.3 cm. The endometrium measures 0.1 cm in combined thickness. There are a few small subendometrial cysts. A midline posterior intramural fibroid measuring up to 0.8 x 0.5 x 0.8 cm is demonstrated as well as a right posterior subserosal fibroid measuring 0.6 x 0.7 x 0.6 cm. No submucosal fibroids. Ovaries: The right ovary measures 1.8 x 0.9 x 1.1 cm and the left ovary measures 1.3 x 0.8 x 1.2 cm with evaluation limited on the left. No discrete adnexal mass identified. There is patent vascularity demonstrated within the ovaries on color Doppler interrogation. Other: No pathologic free abdominal or pelvic fluid. IMPRESSION: 1. No acute sonographic abnormality identified in the pelvis. 2. Small subendometrial cysts are nonspecific and may reflect possible adenomyosis. 3. Small uterine fibroids as described. 4. No adnexal masses. Dictated by: Santosh Roth M.D. on 12/30/2020 at 11:03 Approved by: Santosh Roth M.D. on 12/30/2020 at 11:08
--- NOTE | 2020-12-29 15:33 | DI.US.S_ITS ---
PROCEDURE: US ABDOMEN COMPLETE INDICATIONS: RLQ PAIN TECHNIQUE: Real-time scanning was performed of the abdominal and retroperitoneal organs, with image documentation. COMPARISON: [facility], CT, CT CHEST ABD PEL W CON, 04/12/2020, 12:48. [facility], US, US ABDOMEN LIMITED, 04/12/2020, 15:03. FINDINGS: Liver: Normal size. Increased in echogenicity. Gallbladder: Nondilated. No stones or sludge. Normal gallbladder wall thickness. No pericholecystic fluid. Negative sonographic Zhou's sign. Biliary ducts: Intrahepatic bile ducts are non-dilated. Extrahepatic bile duct caliber measures 4 mm. Normal is 6-7 mm or less in diameter, or 10 mm or less post-cholecystectomy. Pancreas: Visualized portions of the pancreatic body are sonographically normal. Spleen: Spleen is normal in size and homogeneous in echotexture. Kidneys: Kidneys are normal in size and echotexture. Lobular contour. Right kidney measures 11.4 cm long; left kidney measures 11.5 cm long. No hydronephrosis or nephrolithiasis. No solid masses. Aorta: Visualized aorta is normal in caliber at less than 3 cm. Iliacs: Proximal common iliac arteries are normal in caliber at less than 2.5 cm. IVC: Intrahepatic inferior vena cava is patent. Miscellaneous: No free abdominal fluid. No abnormality seen in the right lower quadrant in the region of pain. The appendix is not identified. IMPRESSION: 1. No acute abnormality identified. No acute cholecystitis. No gallstones. 2. Increased hepatic echogenicity most consistent with hepatic steatosis. Other forms of hepatocellular disease could have similar appearance. If clinically indicated consider CT abdomen pelvis with IV contrast for further evaluation. Dictated by: Jean Marie Madison M.D. on 12/29/2020 at 16:54 Approved by: Jean Marie Madison M.D. on 12/29/2020 at 16:56
== END ==
PROVIDERS: PCP Nurse Practitioner; Referring Provider Nurse Practitioner; Visit Provider Nurse Practitioner
DX: R10.31 Right lower quadrant pain (principal); K62.3 Rectal prolapse
CPT/HCPCS: 76700; 76830; 76856

== ENCOUNTER → 2021-01-25 09:38 | Outpatient (CLI) | payer MEDICARE, OTHER, SELFPAY ==
--- NOTE | 2021-01-25 09:40 | DI.CT.S_ITS ---
PROCEDURE: CT ABDOMEN WO/W CON INDICATIONS: abnormal abd us, hepatic changes TECHNIQUE: 4 phase scanning was performed. Non-contrast 5 mm axial sections acquired from the diaphragm to the iliac crests. Following the administration of intravenous contrast, 5 mm thick arterial-phase, portal venous-phase, and 5-minute delayed phase images were acquired through the liver. 5 mm thick coronal and sagittal reformats were performed. For radiation dose reduction, the following was used: automated exposure control, adjustment of mA and/or kV according to patient size. COMPARISON: [facility], CT, CT CHEST ABD PEL W CON, 04/12/2020, 12:48. [facility], US, US ABDOMEN COMPLETE, 12/29/2020, 15:20. FINDINGS: Image quality: Excellent. Lung bases: Lung bases are clear. Heart size is normal. Partially imaged aortic valve calcification. Liver: Liver is normal in size and mildly decreased in overall parenchymal hypodensity. Fairly smooth margin. No focal arterially enhancing lesion. Other solid organs: Gallbladder is normal. Biliary system is non dilated. Pancreas is normal in morphology. Spleen is normal in size and enhancement. There is a splenule anteriorly. No adrenal nodules. Both kidneys demonstrate normal size and enhancement, without hydronephrosis or nephrolithiasis. Nodes and vessels: No retroperitoneal or mesenteric adenopathy by size criteria. Aorta and inferior vena cava are normal in size. Mild abdominal aortic atherosclerotic calcification. Bowel and peritoneum: Unenhanced bowel loops are normal in caliber. Partially imaged normal appendix. No free fluid or air. Bones: No suspicious bony lesions. Degenerative changes in the lowest lumbar facet joints visible. No vertebral body compression fractures. Miscellaneous: Tiny fat containing umbilical hernia. IMPRESSION: 1. Mild diffuse hepatic steatosis consistent with the ultrasound appearance. No significant change since the prior CT study. 2. No focal liver lesion. Dictated by: Areli Allen M.D. on 01/25/2021 at 13:02 Approved by: Areli Allen M.D. on 01/25/2021 at 13:09
[2021-01-25 10:10] LABS: BUN Creatinine Ratio 15.4 (6-22); Blood Urea Nitrogen 14 mg/dL (7-17); Calcium 9.5 mg/dL (8.4-10.2); Carbon Dioxide 23 mmol/L (22-32); Chloride 106 mmol/L (98-107); Estimated Glomerular Filt Rate > 60.0 mL/min (>60); Glucose 103 mg/dL (80-110); HEMOLYSIS < 15 (0-50); Potassium 4.3 mmol/L (3.4-5.1); Sodium 138 mmol/L (137-145)
== END ==
PROVIDERS: PCP Nurse Practitioner; Referring Provider Nurse Practitioner; Visit Provider Nurse Practitioner
DX: K76.0 Fatty (change of) liver, not elsewhere classified (principal); R93.5 Abnormal findings on diagnostic imaging of other abdominal regions, including retroperitoneum; I10 Essential (primary) hypertension; Z85.3 Personal history of malignant neoplasm of breast
CPT/HCPCS: 36415; 74170; 80048; 86300; Q9967

== ENCOUNTER → 2021-03-15 11:08 | Outpatient (CLI) | payer MEDICARE, OTHER, SELFPAY ==
--- NOTE | 2021-03-15 11:10 | DI.RAD.S_ITS ---
PROCEDURE: XR FOOT RT MIN 3V INDICATIONS: Right heel pain TECHNIQUE: 3 views of the foot were acquired. COMPARISON: None. FINDINGS: Bones: No fractures or dislocations. Advanced 1st MTP degenerative arthritis. Mild midfoot degenerative arthritis. Plantar and posterior calcaneal spurs. No suspicious bony lesions. Soft tissues: No tibiotalar joint effusion. Achilles tendon appears normal. IMPRESSION: Advanced 1st MTP degenerative arthritis. Calcaneal spurring. Dictated by: Jamari Randhawa M.D. on 03/15/2021 at 15:49 Approved by: Jamari Randhawa M.D. on 03/15/2021 at 15:50
[2021-03-15 11:47] LABS: Appearance Urine UA CLEAR; Bilirubin Urine UA NEGATIVE (NEGATIVE); Color Urine UA YELLOW; Glucose Urine UA NEGATIVE (Negative); Ketones Urine UA NEGATIVE (NEGATIVE); Leukocyte Esterase Urine UA NEGATIVE (NEGATIVE); Nitrite Urine UA NEGATIVE (Negative); Occult Blood Urine UA TRACE-INTACT (Negative); Protein Urine UA NEGATIVE (Negative); Specific Gravity Urine UA <=1.005 (1.000-1.035); Urobilinogen Urine UA 0.2 E.U./dL (0.2)
[2021-03-15 11:50] LABS: pH Urine UA 6.5 (4.5-8.0)
[2021-03-15 11:59] LABS: Bacteria Urine None Seen; Culture Indicated Urine Cult Not Indicated; RBC Urine None Seen (0-5/HPF); Urine Comments Microscopic Normal; WBC Urine None Seen (0-5/HPF)
[2021-03-15 14:02] LABS: TSH w/ Reflex to FT4 1.54 uIU/mL (0.47-4.68)
== END ==
PROVIDERS: PCP Student in an Organized Health Care Education/Training Program; Referring Provider Student in an Organized Health Care Education/Training Program; Visit Provider Student in an Organized Health Care Education/Training Program
DX: M19.071 Primary osteoarthritis, right ankle and foot (principal); E03.9 Hypothyroidism, unspecified; M79.671 Pain in right foot; R30.0 Dysuria
CPT/HCPCS: 36415; 73630; 81001; 84443

== ENCOUNTER → 2021-03-22 11:12 | Outpatient (CLI) | payer MEDICARE, OTHER, SELFPAY | PROVIDERS: PCP Student in an Organized Health Care Education/Training Program; Referring Provider Student in an Organized Health Care Education/Training Program; Visit Provider Student in an Organized Health Care Education/Training Program | DX: M85.852 Other specified disorders of bone density and structure, left thigh (principal); Z78.0 Asymptomatic menopausal state; Z85.3 Personal history of malignant neoplasm of breast; Z87.891 Personal history of nicotine dependence | CPT/HCPCS: 77080 ==

== ENCOUNTER → 2021-05-02 15:51 | Outpatient (CLI) | payer MEDICARE, OTHER, SELFPAY ==
[2021-05-02 18:34] LABS: TSH w/ Reflex to FT4 2.81 uIU/mL (0.47-4.68)
== END ==
PROVIDERS: PCP Student in an Organized Health Care Education/Training Program; Referring Provider Student in an Organized Health Care Education/Training Program; Visit Provider Student in an Organized Health Care Education/Training Program
DX: E03.9 Hypothyroidism, unspecified (principal)
CPT/HCPCS: 36415; 84443

== ENCOUNTER → 2022-02-03 09:34 | Outpatient (CLI) | payer MEDICARE, OTHER, SELFPAY ==
--- NOTE | 2022-02-03 09:35 | DI.RAD.S_ITS ---
PROCEDURE: XR HIP W PEL IF DONE RT 2V INDICATIONS: Right hip pain TECHNIQUE: AP pelvis with lateral view(s) of the right hip(s). COMPARISON: None. FINDINGS: Bones: No fractures or dislocations. Pelvic ring appears intact. No suspicious bony lesions. Bilateral hip joint space narrowing and spurring, severe on the right, moderate on the left. Soft tissues: The visualized bowel gas pattern is normal. No suspicious soft tissue calcifications. IMPRESSION: Bilateral hip degenerative changes, severe on the right and moderate on the left. Dictated by: Gianni Shane M.D. on 02/03/2022 at 13:39 Approved by: Gianni Shane M.D. on 02/03/2022 at 13:41
== END ==
PROVIDERS: PCP Student in an Organized Health Care Education/Training Program; Referring Provider Student in an Organized Health Care Education/Training Program; Visit Provider Student in an Organized Health Care Education/Training Program
DX: M25.551 Pain in right hip (principal)
CPT/HCPCS: 73502

== ENCOUNTER → 2022-04-03 14:16 | Outpatient (CLI) | payer MEDICARE, OTHER, SELFPAY ==
--- NOTE | 2022-04-03 14:17 | DI.RAD.S_ITS ---
PROCEDURE: XR DEXA AXIAL SKELETON INDICATIONS: osteoporosis monitoring COMPARISON: [facility], CR, XR DEXA AXIAL SKELETON, 03/22/2021, 11:37. FINDINGS: This blank DEXA report has been sent in error by the PACS system. The correct and complete report will be forthcoming in 1-2 days. Thank you for your patience and understanding. Dictated by: Yaya Moya M.D. on 04/03/2022 at 16:02 Approved by: Yaya Moya M.D. on 04/03/2022 at 16:02
== END ==
PROVIDERS: PCP Student in an Organized Health Care Education/Training Program; Referring Provider Student in an Organized Health Care Education/Training Program; Visit Provider Student in an Organized Health Care Education/Training Program
DX: Z13.820 Encounter for screening for osteoporosis; Z78.0 Asymptomatic menopausal state; Z87.311 Personal history of (healed) other pathological fracture
CPT/HCPCS: 77080

== ENCOUNTER → 2022-07-11 09:33 | Outpatient (CLI) | payer MEDICARE, OTHER, SELFPAY ==
[2022-07-11 10:10] LABS: BUN Creatinine Ratio 13.3 (6-22); Blood Urea Nitrogen 13 mg/dL (7-17); Calcium 9.5 mg/dL (8.4-10.2); Carbon Dioxide 29 mmol/L (22-32); Chloride 104 mmol/L (98-107); Cholesterol 182 mg/dL (140-199); Estimated Glomerular Filt Rate > 60 mL/min (>60); Glucose 102 mg/dL (80-110); HDL Cholesterol 49 mg/dL (40-60); HEMOLYSIS < 15 (0-50); LDL Cholesterol Calculated 99 mg/dL (<100); Potassium 4.7 mmol/L (3.4-5.1); Sodium 141 mmol/L (137-145); Triglycerides 172 mg/dL (35-150)
[2022-07-11 11:02] LABS: Hep C Virus Ab w/Reflex Quant NEGATIVE s/c (NEGATIVE)
== END ==
PROVIDERS: PCP Student in an Organized Health Care Education/Training Program; Referring Provider Student in an Organized Health Care Education/Training Program; Visit Provider Student in an Organized Health Care Education/Training Program
DX: E78.2 Mixed hyperlipidemia (principal); I10 Essential (primary) hypertension; Z11.59 Encounter for screening for other viral diseases
CPT/HCPCS: 36415; 80048; 80061; 86803

== ENCOUNTER → 2022-07-25 10:03 | Outpatient (CLI) | payer MEDICARE, OTHER, SELFPAY ==
[2022-07-26 17:20] LABS: Fecal Immunochemical Test Negative (Negative)
== END ==
PROVIDERS: PCP Student in an Organized Health Care Education/Training Program; Referring Provider Student in an Organized Health Care Education/Training Program; Visit Provider Student in an Organized Health Care Education/Training Program
DX: Z12.11 Encounter for screening for malignant neoplasm of colon (principal)
CPT/HCPCS: 82274

== ENCOUNTER → 2022-10-23 08:52 | Outpatient (CLI) | payer MEDICARE, OTHER, SELFPAY ==
[2022-10-24 19:33] LABS: Creatinine Urine Random 19.4 mg/dL
[2022-10-24 19:43] LABS: Microalbumin Urine Random < 0.6 mg/dL (0-1.6)
== END ==
PROVIDERS: PCP Family Medicine; Visit Provider Family Medicine
DX: I10 Essential (primary) hypertension (principal)
CPT/HCPCS: 82043; 82570

== ENCOUNTER → 2022-12-26 15:29 | Outpatient (CLI) | payer MEDICARE, OTHER, SELFPAY ==
--- NOTE | 2022-12-26 15:30 | DI.RAD.S_ITS ---
PROCEDURE: XR LUMBAR SPINE 6V W BENDING INDICATIONS: lumbar pain TECHNIQUE: 7 views of the lumbar spine acquired, including flexion and extension views and oblique views. COMPARISON: [facility], , XR LUMBAR SPINE MIN 4V, 05/13/2019, 13:47. FINDINGS: Bones: 5 nonrib-bearing vertebrae are present. There is 4 mm anterolisthesis of L4 on L5 and 4 mm retrolisthesis of L2 on L3. Degenerative endplate changes and bilateral facet arthrosis throughout lumbar spine is seen. No vertebral body compression fractures. No suspicious bony lesions. No gross pars defects are seen on oblique views. Soft tissues: Overlying bowel gas pattern is normal. No suspicious soft tissue calcifications. Flexion/extension: There is decreased range of motion, with preserved lumbar spine alignment. IMPRESSION: 1. Degenerative disc disease throughout lumbar spine. No acute compression fracture. 2. Grade 1 spondylolisthesis at L2-3 and L4-5 levels as above. No gross pars defects. 3. Slightly decreased range of motion on lateral flexion and extension views with preserved lumbar spine alignment. Dictated by: Hollis Saunders M.D. on 12/26/2022 at 17:24 Approved by: Hollis Saunders M.D. on 12/26/2022 at 17:26
== END ==
PROVIDERS: PCP Family Medicine; Referring Provider Family Medicine; Visit Provider Family Medicine
DX: M51.16 Intervertebral disc disorders with radiculopathy, lumbar region (principal); M43.16 Spondylolisthesis, lumbar region
CPT/HCPCS: 72114

== ENCOUNTER → 2023-01-04 15:11 | Outpatient (CLI) | payer MEDICARE, OTHER, SELFPAY ==
--- NOTE | 2023-01-04 15:12 | DI.MRI.S_ITS ---
PROCEDURE: MR LUMBAR SPINE WO CON INDICATIONS: lumbar pain TECHNIQUE: Noncontrast sagittal T1 spin echo and T2 fast echo, sagittal STIR, and T2 fast spin echo through the lumbar spine. In cases with scoliosis, additional coronal T2 fast spin echo may be performed. COMPARISON: [facility], CR, XR LUMBAR SPINE 6V W BENDING, 12/26/2022, 15:51. [facility], CT, CT ABDOMEN WO/W CON, 01/25/2021, 9:46. FINDINGS: Image quality: Diagnostic, with note made of motion artifact. Alignment and Curvature: There is normal bony alignment. Bone Marrow: Marrow is of normal overall signal. No acute vertebral body compression fractures. Spinal Cord: Conus medullaris terminates at the L1 level. Visualized cord demonstrates normal signal and size. Paraspinous Soft Tissues: No paravertebral masses. T12-L1: Normal appearance. L1-L2: The disc height is well-preserved. Loss of disc signal is seen at this level. Moderate generalized disc bulge is seen. There is a superimposed central disc protrusion. Moderate facet joint hypertrophy is seen. Associated hypertrophy of the ligamentum flavum can be seen. There is at least moderate right-sided and moderate left-sided neural foraminal narrowing. Moderate to severe central canal narrowing is seen, as on series 5, image 10. L2-L3: Mild loss of disc height is seen. Loss of disc signal is seen. Moderate disc bulge is seen, which is eccentric to the right. There is a superimposed central disc protrusion. There is a focal annular fissure seen posteriorly. Moderate facet hypertrophy is seen, right worse than left. Associated hypertrophy of the ligamentum flavum can be seen. There is at least moderate right-sided and moderate left-sided neural foraminal narrowing. There is a degree of compression seen upon the exiting right L2 nerve root. Moderate to severe central canal narrowing is seen, as on series 5, image 16. L3-L4: The disc height is well-preserved. Loss of disc signal is seen at this level. Moderate generalized disc bulge is seen, which is eccentric to the right. Moderate facet joint hypertrophy is seen. Moderate bilateral neural foraminal narrowing is seen. Moderate central canal narrowing is seen. L4-L5: The disc height is well-preserved. Loss of disc signal is seen at this level. At least moderate disc bulge is seen. There is a superimposed central disc protrusion. There is a focal annular fissure seen posteriorly. Moderate to prominent facet hypertrophy is seen. Associated hypertrophy of the ligamentum flavum can be seen. Fluid is seen within the facet joints themselves. There is moderate to severe bilateral neural foraminal narrowing seen, with an associated a degree of compression seen upon the exiting nerve roots. There is severe central canal narrowing, as on series 6, image 11. L5-S1: The disc height is well-preserved. Loss of disc signal is seen at this level. Moderate generalized disc bulge is seen. There is a superimposed central disc protrusion. There is moderate to prominent right-sided and moderate left-sided facet hypertrophy. There is moderate to severe right-sided neural foraminal narrowing and there is at least moderate left-sided neural foraminal narrowing. There is a degree of compression seen upon the exiting nerve roots. Moderate central canal narrowing is seen. IMPRESSION: Multiple levels of significant lumbar spine degenerative change can be seen, which are overall worst at the L4-L5 level. Dictated by: Kalyan Abarca M.D. on 01/04/2023 at 16:49 Approved by: Kalyan Abarca M.D. on 01/04/2023 at 16:54
== END ==
PROVIDERS: PCP Family Medicine; Referring Provider Family Medicine; Visit Provider Family Medicine
DX: M47.26 Other spondylosis with radiculopathy, lumbar region (principal)
CPT/HCPCS: 72148

== ENCOUNTER → 2023-09-07 08:43 | Outpatient (CLI) | payer MEDICARE, OTHER, SELFPAY ==
[2023-09-07 09:24] LABS: Add Manual Diff / Slide Review NO; Basophils Absolute Auto 0 /uL (0-100); Basophils Percent Auto 0.7 % (0-2); Eosinophils Absolute Auto 100 /uL (0-450); Eosinophils Percent Auto 1.8 % (2-4); Hematocrit 40.4 % (36-46); Hemoglobin 13.7 g/dL (12.0-16.0); Lymphocytes Absolute Auto 1800 /uL (1100-4500); Lymphocytes Percent Auto 26.2 % (25-40); Mean Corpuscular HGB Conc 33.8 % (30-36); Mean Corpuscular Hemoglobin 30.3 PG (26-34); Mean Corpuscular Volume 89.7 fL (80-100); Monocytes Absolute Auto 600 /uL (0-900); Monocytes Percent Auto 9.1 % (3-14); Neutrophils Absolute Auto 4300 /uL (1500-7000); Neutrophils Percent Auto 62.2 % (50-75); Platelet Count 260 X10^3/uL (150-400); Red Blood Cell Count 4.51 X10^6/uL (4.0-5.2); Red Cell Distribution Width 13.4 % (11.6-14.8); White Blood Cell Count 6.9 X10^3/uL (4.5-11.0)
[2023-09-07 11:09] LABS: Vitamin D 25 Hydroxy (D3) 46.7 ng/mL (30.0-100.0)
[2023-09-07 11:25] LABS: Cholesterol 189 mg/dL (140-199); HDL Cholesterol 53 mg/dL (40-60); LDL Cholesterol Calculated 95 mg/dL (<100); Triglycerides 204 mg/dL (35-150)
[2023-09-07 11:32] LABS: TSH w/ Reflex to FT4 3.63 uIU/mL (0.47-4.68)
[2023-09-07 12:01] LABS: Creatinine Urine Random 23.9 mg/dL
[2023-09-07 12:05] LABS: Microalbumin Urine Random < 0.6 mg/dL (0-1.6)
== END ==
PROVIDERS: PCP Family Medicine; Referring Provider Family Medicine; Visit Provider Family Medicine
DX: E03.9 Hypothyroidism, unspecified (principal); E55.9 Vitamin D deficiency, unspecified; I10 Essential (primary) hypertension; E78.2 Mixed hyperlipidemia
CPT/HCPCS: 36415; 80061; 82043; 82306; 82570; 84443; 85025

== ENCOUNTER → 2023-09-14 09:06 | Outpatient (CLI) | payer MEDICARE, OTHER, SELFPAY ==
--- NOTE | 2023-09-14 09:07 | DI.RAD.S_ITS ---
PROCEDURE: XR HIP W PEL IF DONE LT 2V INDICATIONS: suspect OA TECHNIQUE: AP pelvis with lateral view(s) of the left hip(s). COMPARISON: [facility], , XR HIP W PEL IF DONE RT 2V, 02/03/2022, 9:37. FINDINGS: Bones: No fractures or dislocations. Pelvic ring appears intact. No suspicious bony lesions. Severe right hip DJD. Moderate left hip DJD. Soft tissues: The visualized bowel gas pattern is normal. No suspicious soft tissue calcifications. IMPRESSION: Findings not significantly changed compared to 2021. Severe right hip DJD. Moderate left hip DJD. Dictated by: Jean Marie Madison M.D. on 09/14/2023 at 12:52 Approved by: Jean Marie Madison M.D. on 09/14/2023 at 12:54
== END ==
PROVIDERS: PCP Family Medicine; Referring Provider Family Medicine; Visit Provider Family Medicine
DX: M16.0 Bilateral primary osteoarthritis of hip (principal); M85.89 Other specified disorders of bone density and structure, multiple sites; M25.552 Pain in left hip; I10 Essential (primary) hypertension; R25.2 Cramp and spasm
CPT/HCPCS: 73502

== ENCOUNTER → 2023-11-08 10:38 | Outpatient (CLI) | payer MEDICARE, OTHER, SELFPAY ==
[2023-11-08 11:37] LABS: HEMOLYSIS < 15 (0-50); Iron 83 ug/dL (37-170)
[2023-11-08 11:38] LABS: Alanine Aminotransferase 29 IU/L (<35); Albumin 4.2 g/dL (3.5-5.0); Albumin Globulin Ratio 1.7 (1.0-2.8); Alkaline Phosphatase 87 U/L (38-126); Aspartate Aminotransferase 32 IU/L (14-36); Bilirubin Total 0.6 mg/dL (0.2-1.3); Blood Urea Nitrogen 16 mg/dL (7-17); Calcium 9.2 mg/dL (8.4-10.2); Carbon Dioxide 27 mmol/L (22-32); Chloride 107 mmol/L (98-107); Estimated Glomerular Filt Rate 59 mL/min (>60); Globulin 2.5 g/dL (1.7-4.1); Glucose 94 mg/dL (80-110); HEMOLYSIS < 15 (0-50); Potassium 4.4 mmol/L (3.4-5.1); Sodium 139 mmol/L (137-145); Total Protein 6.7 g/dL (6.3-8.2)
[2023-11-08 11:47] LABS: Percent Iron Saturation 23 % (15-50); Total Iron Binding Capacity 354 ug/dL (265-497); Transferrin 267 mg/dL (206-381)
[2023-11-08 12:12] LABS: Ferritin 18 ng/mL (11-264)
== END ==
PROVIDERS: PCP Family Medicine; Referring Provider Family Medicine; Visit Provider Family Medicine
DX: M25.552 Pain in left hip (principal); M85.89 Other specified disorders of bone density and structure, multiple sites; I10 Essential (primary) hypertension; R25.2 Cramp and spasm
CPT/HCPCS: 36415; 80053; 82728; 83540; 83550

== ENCOUNTER → 2024-04-10 14:51 | Outpatient (CLI) | payer MEDICARE, OTHER, SELFPAY ==
--- NOTE | 2024-04-10 14:52 | DI.RAD.S_ITS ---
PROCEDURE: XR DEXA AXIAL SKELETON INDICATIONS: Osteoporosis screening COMPARISON: [facility], , XR DEXA AXIAL SKELETON, 04/03/2022, 14:32. [facility], CR, XR DEXA AXIAL SKELETON, 03/22/2021, 11:37. FINDINGS: Lumbar Spine: Bone mineral density is 1.252 g/cm2, T score 1.9, unchanged. Left Hip: Bone mineral density 0.887 g/cm2, T score -0.5, previously -0.4. Left Femoral Neck: Bone mineral density 0.776 g/cm2, T score -0.7, previously -0.8. Right Hip: Bone mineral density 0.866 g/cm2, T score -0.6, previously -0.5. Right Femoral Neck: Bone mineral density 0.741 g/cm2, T score -1, previously -0.8. Fracture Risk Calculation (when applicable): Not reported due to normal bone mineral density (T score greater or equal to -1.0 to: NORMAL) (T score from -1.1 to -2.4: OSTEOPENIA) (T score less than or equal to -2.5: OSTEOPOROSIS) IMPRESSION: Normal bone mineral density. Similar findings from prior. Follow-up guidelines as follows: Osteoporosis: Consider a repeat DEXA and Vertebral Fracture Assessment (VFA) exam in 2 years or sooner if medically necessary, to reassess this patient's status. Osteopenia: Consider a repeat DEXA in 2-3 years to reassess this patient's status, or if there is a new clinical indication. Normal: Consider a repeat DEXA in 5 years or sooner, or if there is a new clinical indication. All treatment decisions require clinical judgment and consideration of individual patient factors, including patient preferences, comorbidities, previous drug use, risk factors not captured in the FRAX model (e.g., frailty, falls, vitamin D deficiency, increased bone turnover, interval significant decline in bone density ) and possible under- or over-estimation of fracture risk by FRAX. In addition, the NOF Guide recommends that FDA-approved medical therapies be considered in postmenopausal women and men age >= 50 years with a: * Hip or vertebral (clinical or morphometric) fracture * T-score of <=-2.5 at the spine or hip * Ten-year fracture probability by FRAX of >= 3% for hip fracture or >=20% for major osteoporotic fracture. People with diagnosed cases of osteoporosis or at high risk for fracture should have regular bone mineral density tests. For patients eligible for Medicare, routine testing is allowed once every 2 years. The testing frequency can be increased to one year for patients who have rapidly progressing disease, those who are receiving or discontinuing medical therapy to restore bone mass, or have additional risk factors. Dictated by: Eulogio Logan M.D. on 04/10/2024 at 16:43 Approved by: Eulogio Logan M.D. on 04/10/2024 at 16:45
== END ==
LOC: RAD 14:52
PROVIDERS: PCP Family Medicine; Referring Provider Family Medicine; Visit Provider Family Medicine
DX: M85.89 Other specified disorders of bone density and structure, multiple sites (principal); Z13.820 Encounter for screening for osteoporosis; M16.11 Unilateral primary osteoarthritis, right hip
CPT/HCPCS: 77080

== ENCOUNTER → 2024-09-10 07:02 | Outpatient (CLI) | payer MEDICARE, OTHER, SELFPAY ==
[2024-09-10 07:45] LABS: Add Manual Diff / Slide Review NO; Basophils Absolute Auto 0 /uL (0-100); Basophils Percent Auto 0.7 % (0-2); Eosinophils Absolute Auto 100 /uL (0-450); Eosinophils Percent Auto 1.6 % (2-4); Hematocrit 41.9 % (36-46); Hemoglobin 14.2 g/dL (12.0-16.0); Lymphocytes Absolute Auto 2000 /uL (1100-4500); Lymphocytes Percent Auto 31.3 % (25-40); Mean Corpuscular HGB Conc 33.9 % (30-36); Mean Corpuscular Hemoglobin 30.4 PG (26-34); Mean Corpuscular Volume 89.7 fL (80-100); Monocytes Absolute Auto 500 /uL (0-900); Monocytes Percent Auto 8.6 % (3-14); Neutrophils Absolute Auto 3600 /uL (1500-7000); Neutrophils Percent Auto 57.8 % (50-75); Platelet Count 234 X10^3/uL (150-400); Red Blood Cell Count 4.67 X10^6/uL (4.0-5.2); Red Cell Distribution Width 13.8 % (11.6-14.8); White Blood Cell Count 6.3 X10^3/uL (4.5-11.0)
[2024-09-10 08:13] LABS: Alanine Aminotransferase 29 IU/L (<35); Albumin 4.6 g/dL (3.5-5.0); Albumin Globulin Ratio 1.6 (1.0-2.8); Alkaline Phosphatase 76 U/L (38-126); Aspartate Aminotransferase 37 IU/L (14-36); BUN Creatinine Ratio 15.5 (6-22); Bilirubin Total 1.3 mg/dL (0.2-1.3); Blood Urea Nitrogen 16 mg/dL (7-17); Calcium 9.8 mg/dL (8.4-10.2); Carbon Dioxide 24 mmol/L (22-32); Chloride 104 mmol/L (98-107); Cholesterol 200 mg/dL (140-199); Estimated Glomerular Filt Rate 56 mL/min (>60); Globulin 2.8 g/dL (1.7-4.1); Glucose 97 mg/dL (80-110); HDL Cholesterol 56 mg/dL (40-60); HEMOLYSIS < 15 (0-50); LDL Cholesterol Calculated 102 mg/dL (<100); Potassium 4.2 mmol/L (3.4-5.1); Sodium 138 mmol/L (137-145); Total Protein 7.4 g/dL (6.3-8.2); Triglycerides 209 mg/dL (35-150)
== END ==
PROVIDERS: PCP Family Medicine; Referring Provider Family Medicine; Visit Provider Family Medicine
DX: I10 Essential (primary) hypertension (principal); E78.2 Mixed hyperlipidemia; K21.00 Gastro-esophageal reflux disease with esophagitis, without bleeding; Z00.00 Encounter for general adult medical examination without abnormal findings
CPT/HCPCS: 36415; 80053; 80061; 85025; 86140

== ENCOUNTER → 2024-09-15 11:53 | Outpatient (CLI) | payer MEDICARE, OTHER, SELFPAY ==
[2024-09-15 14:43] LABS: Creatinine Urine Random 35.57 mg/dL
[2024-09-15 14:49] LABS: Microalbumin Urine Random < 0.6 mg/dL (0-1.6)
== END ==
PROVIDERS: PCP Family Medicine; Referring Provider Family Medicine; Visit Provider Family Medicine
DX: E78.2 Mixed hyperlipidemia (principal); I10 Essential (primary) hypertension
CPT/HCPCS: 82043; 82570